=== PATIENT | female | born 1955 | race Asian ===

== ENCOUNTER 2021-06-27 18:11 | Inpatient (IN) ==
[2021-06-27 18:59] LABS: ABS Basophils 0.1 10^3/ul (0-0.2); ABS Eosinophils 0.1 10^3/ul (0-0.6); ABS Lymphocytes 3.4 10^3/ul (1.0-4.8); ABS Monocytes 0.9 10^3/ul (0-0.8); ABS Neutrophils 6.9 10^3/ul (1.5-7.7); Eosinophil % 1.3 %; Hematocrit 41 % (35-47); Hemoglobin 13.6 g/dL (12.0-16.0); Lymphocyte % 29.9 %; Mean Corpuscular HGB Conc 34 g/dL (31-36); Mean Corpuscular Hemoglobin 31 pg (27-31); Mean Corpuscular Volume 92 fL (80-97); Nucleated Red Blood Cells % 0.1; Platelet Count 250 10^3/uL (150-450); Red Blood Count 4.41 10^6 /uL (3.70-4.87); Red Cell Distribution Width 14 % (10-15); White Blood Count 11.5 10^3/uL (3.5-10.8)
[2021-06-27 19:09] LABS: Urine Appearance Cloudy; Urine Bilirubin Negative (Negative); Urine Blood Negative (Negative); Urine Color Yellow; Urine Glucose Negative (Negative); Urine Ketones Negative (Negative); Urine Nitrite Negative (Negative); Urine Protein Negative (Negative); Urine Specific Gravity 1.009 (1.002-1.030); Urine Urobilinogen Negative (Negative)
[2021-06-27 19:31] LABS: TSH Ultra Thyroid Stim Horm 1.97 mcIU/mL (0.34-5.60)
[2021-06-27 19:33] LABS: ALT 24 U/L (7-52); AST 24 U/L (13-39); Albumin 3.9 g/dL (3.2-5.2); Albumin/Globulin Ratio 0.9 (1-3); Alkaline Phosphatase 105 U/L (35-149); Anion Gap 9 mmol/L (2-11); Blood Urea Nitrogen 11 mg/dL (6-24); CO2 Carbon Dioxide 23 mmol/L (22-32); Calcium 10.1 mg/dL (8.6-10.3); Chloride 103 mmol/L (101-111); Globulin 4.5 g/dL (2-4); Glucose 98 mg/dL (70-100); Potassium 3.8 mmol/L (3.5-5.0); Sodium 135 mmol/L (135-145); Total Protein 8.4 g/dL (6.4-8.9)
[2021-06-27 19:37] LABS: Alcohol, S < 13 mg/dL (<13); Salicylate < 2.50 mg/dL (<30)
[2021-06-27 19:40] LABS: Acetaminophen < 15 mcg/mL
[2021-06-27 19:41] LABS: Urine Benzodiazepine Screen None Detected (None Detect); Urine Cannabinoids Screen None Detected (None Detect); Urine Opiates Screen None Detected (None Detect)
[2021-06-28] MEDS ORDERED: Al Hydrox/Mg Hydrox/Simet LIQ 30 ML UDC PO PRN (04:02)
[2021-06-28 04:39] LABS: Rapid COVID-19 Molecular Undetected (Undetected)
[2021-06-28] MEDS: Vitamin THERAPEUTIC TAB PO SCH (09:37)
[2021-06-28] MEDS ORDERED: Haloperidol 5 mg/ml SDV IV/IM 5 MG/ML AMP IM ONE (11:00)
[2021-06-28] MEDS ORDERED: diPHENhydraMINE IV 50 MG/ML 1 ml VIAL (BENADRYL) IM ONE (11:01)
[2021-06-28] MEDS ORDERED: Lorazepam PYXIS KEY PRN (11:03)
[2021-06-28] MEDS ORDERED: LORazepam 2 mg VIAL 1 ml IM ONE (11:03)
[2021-06-29 08:04] LABS: HDL Cholesterol 54.2 mg/dL
[2021-06-29] MEDS: Vitamin THERAPEUTIC TAB PO SCH (08:14)
[2021-06-30] MEDS: Vitamin THERAPEUTIC TAB PO SCH (08:36)
[2021-07-01] MEDS: Vitamin THERAPEUTIC TAB PO SCH (08:14)
[2021-07-02] MEDS: Vitamin THERAPEUTIC TAB PO SCH (07:42)
[2021-07-03] MEDS: Vitamin THERAPEUTIC TAB PO SCH (08:10)
[2021-07-04] MEDS: Vitamin THERAPEUTIC TAB PO SCH (08:07)
[2021-07-04] MEDS ORDERED: Paliperidone SUSTENNA 234 MG/1.5 ML IM ONE (12:55)
[2021-07-05] MEDS: Vitamin THERAPEUTIC TAB PO SCH (08:41)
[2021-07-06] MEDS: Vitamin THERAPEUTIC TAB PO SCH (07:46)
[2021-07-07] MEDS: Vitamin THERAPEUTIC TAB PO SCH (08:17)
[2021-07-08] MEDS: Vitamin THERAPEUTIC TAB PO SCH (07:57)
[2021-07-09] MEDS: Vitamin THERAPEUTIC TAB PO SCH (08:06)
[2021-07-09] MEDS ORDERED: Paliperidone SUSTENNA 156 MG/1 ML IM ONE (09:47)
[2021-07-10] MEDS: Vitamin THERAPEUTIC TAB PO SCH (07:31)
[2021-07-11] MEDS: Vitamin THERAPEUTIC TAB PO SCH (08:32)
[2021-07-12] MEDS: Vitamin THERAPEUTIC TAB PO SCH (08:09)
[2021-07-12 09:23] VITALS: BP 131/51
== END 2021-07-12 14:00 | disposition home or self-care (01) | DRG 885 ==
LOC: ED 18:11 → BSU 06-28 03:04
PROVIDERS: ADMIT Psychiatry & Neurology Psychiatry; ATTEND Student in an Organized Health Care Education/Training Program

== ENCOUNTER 2021-11-26 13:53 | Inpatient (IN) ==
[2021-11-27] MEDS ORDERED: Al Hydrox/Mg Hydrox/Simet LIQ 30 ML UDC PO PRN (04:36)
[2021-11-27] MEDS: Vitamin THERAPEUTIC TAB PO SCH (09:29)
[2021-11-28 08:20] LABS: HDL Cholesterol 61.4 mg/dL
[2021-11-28] MEDS ORDERED: OLANzapine 5 mg TAB*ODT PO PRN (09:53)
[2021-11-28] MEDS: Vitamin THERAPEUTIC TAB PO SCH (11:37)
[2021-11-29] MEDS: Vitamin THERAPEUTIC TAB PO SCH (07:48)
[2021-11-30] MEDS: Vitamin THERAPEUTIC TAB PO SCH (08:39)
[2021-12-01] MEDS: Vitamin THERAPEUTIC TAB PO SCH (08:45)
[2021-12-02] MEDS: Vitamin THERAPEUTIC TAB PO SCH (08:55)
[2021-12-03] MEDS: Vitamin THERAPEUTIC TAB PO SCH (09:53)
[2021-12-04] MEDS: Vitamin THERAPEUTIC TAB PO SCH (08:26)
[2021-12-05] MEDS: Vitamin THERAPEUTIC TAB PO SCH (07:21)
[2021-12-06] MEDS: Vitamin THERAPEUTIC TAB PO SCH (08:52)
[2021-12-06] MEDS ORDERED: Paliperidone SUSTENNA 234 MG/1.5 ML IM ONE (09:50)
[2021-12-07] MEDS: Vitamin THERAPEUTIC TAB PO SCH (08:57)
[2021-12-08] MEDS: Vitamin THERAPEUTIC TAB PO SCH (08:50)
[2021-12-09] MEDS: Vitamin THERAPEUTIC TAB PO SCH (08:57)
[2021-12-09] MEDS ORDERED: Paliperidone SUSTENNA 156 MG/1 ML IM ONE (09:51)
[2021-12-10] MEDS: Vitamin THERAPEUTIC TAB PO SCH (09:40)
[2021-12-11] MEDS: Vitamin THERAPEUTIC TAB PO SCH (08:21)
[2021-12-12] MEDS: Vitamin THERAPEUTIC TAB PO SCH (07:49)
[2021-12-13] MEDS: Vitamin THERAPEUTIC TAB PO SCH (08:36)
[2021-12-14] MEDS: Vitamin THERAPEUTIC TAB PO SCH (09:01)
[2021-12-15] MEDS: Vitamin THERAPEUTIC TAB PO SCH (07:59)
[2021-12-16] MEDS: Vitamin THERAPEUTIC TAB PO SCH (07:13)
[2021-12-17] MEDS: Vitamin THERAPEUTIC TAB PO SCH (08:28)
[2021-12-18] MEDS: Vitamin THERAPEUTIC TAB PO SCH (08:21)
[2021-12-19] MEDS: Vitamin THERAPEUTIC TAB PO SCH (07:49)
[2021-12-20] MEDS: Vitamin THERAPEUTIC TAB PO SCH (07:42)
[2021-12-21] MEDS: Vitamin THERAPEUTIC TAB PO SCH (08:15)
[2021-12-22] MEDS: Vitamin THERAPEUTIC TAB PO SCH (07:35)
[2021-12-23] MEDS: Vitamin THERAPEUTIC TAB PO SCH (07:51)
[2021-12-24] MEDS: Vitamin THERAPEUTIC TAB PO SCH (07:22)
[2021-12-24 07:52] VITALS: BP 103/82
== END 2021-12-24 12:00 | disposition home or self-care (01) | DRG 885 ==
LOC: ED 13:53 → BSU 21:00
PROVIDERS: ADMIT Psychiatry & Neurology Psychiatry; ATTEND Psychiatry & Neurology Psychiatry

== ENCOUNTER 2023-08-19 12:44 | Inpatient (IN) ==
[2023-08-19 14:34] LABS: ABS Basophils 0.1 10^3/uL (0.0-0.1); ABS Eosinophils 0.1 10^3/uL (0.0-0.5); ABS Lymphocytes 2.4 10^3/uL (1.0-4.8); ABS Monocytes 0.7 10^3/uL (0.0-0.9); ABS Nucleated RBC 0.01 10^3/ul; Hematocrit 38.4 % (35-45); Hemoglobin 12.8 g/dL (11.5-14.3); Mean Corpuscular Hemoglobin 31.3 pg (27-33); Mean Corpuscular Hgb Conc 33.4 g/dL (31-36); Mean Corpuscular Volume 93.7 fL (80-97); Mean Platelet Volume 8.9 fL (7.5-11.2); Nucleated Red Blood Cells % 0.1 %/100WBC (0.0-0.8); Platelet Count 279 10^3/uL (150-450); Red Cell Distribution Width 14.4 % (12-17); White Blood Count 9.2 10^3/uL (3.8-11.8)
[2023-08-19 14:50] LABS: Urine Appearance Clear; Urine Bilirubin Negative (Negative); Urine Blood Negative (Negative); Urine Color Yellow; Urine Glucose Negative (Negative); Urine Ketones Negative (Negative); Urine Nitrite Negative (Negative); Urine Protein Negative (Negative); Urine Specific Gravity 1.009 (1.002-1.030); Urine Urobilinogen Negative (Negative)
[2023-08-19 15:09] LABS: ALT 13 U/L (7-52); AST 17 U/L (13-39); Acetaminophen < 15 mcg/mL; Alcohol, S < 13 mg/dL (<13); Alkaline Phosphatase 122 U/L (35-149); Anion Gap 6 mmol/L (2-16); Blood Urea Nitrogen 17 mg/dL (6-24); CO2 Carbon Dioxide 28 mmol/L (22-32); Calcium 9.7 mg/dL (8.6-10.3); Chloride 101 mmol/L (101-111); Creatinine, Serum 0.92 mg/dL (0.51-0.95); Globulin 4.1 g/dL (2-4); Glucose 77 mg/dL (70-100); Potassium 3.6 mmol/L (3.5-5.0); Salicylate < 2.50 mg/dL (<30); Sodium 135 mmol/L (135-145); Total Bilirubin 0.3 mg/dL (0.2-1.0); Total Protein 8.1 g/dL (6.4-8.9); eGFR CKD-EPI 67.8 (>60)
[2023-08-19 15:19] LABS: Urine Bacteria 1+ (Absent); Urine Red Blood Cell Absent (Absent); Urine Squamous Epithelial Cell Present (Absent); Urine White Blood Cell Trace(0-5/hpf) (Absent)
[2023-08-19 15:22] LABS: TSH Ultra Thyroid Stim Horm 1.64 mcIU/mL (0.34-5.60)
[2023-08-19 15:23] LABS: Urine Benzodiazepine Screen None Detected (None Detect); Urine Cannabinoids Screen None Detected (None Detect); Urine Opiates Screen None Detected (None Detect)
[2023-08-19] MEDS ORDERED: Al Hydrox/Mg Hydrox/Simet LIQ 30 ML UDC PO PRN (15:52)
[2023-08-20] MEDS: Vitamin THERAPEUTIC TAB PO SCH (09:23)
[2023-08-20 09:59] LABS: HDL Cholesterol 56.7 mg/dL
[2023-08-20 12:15] LABS: ABS Basophils 0.1 10^3/uL (0.0-0.1); ABS Eosinophils 0.1 10^3/uL (0.0-0.5); ABS Lymphocytes 2.7 10^3/uL (1.0-4.8); ABS Monocytes 0.5 10^3/uL (0.0-0.9); ABS Neutrophils 3.5 10^3/uL (1.5-7.6); ABS Nucleated RBC 0.01 10^3/ul; Eosinophil % 1.9 %; Hematocrit 39.8 % (35-45); Hemoglobin 13.5 g/dL (11.5-14.3); Lymphocyte % 38.9 %; Mean Corpuscular Hemoglobin 32.1 pg (27-33); Mean Corpuscular Hgb Conc 33.9 g/dL (31-36); Mean Corpuscular Volume 94.6 fL (80-97); Mean Platelet Volume 8.9 fL (7.5-11.2); Nucleated Red Blood Cells % 0.1 %/100WBC (0.0-0.8); Platelet Count 225 10^3/uL (150-450); Red Cell Distribution Width 14.5 % (12-17); White Blood Count 6.8 10^3/uL (3.8-11.8)
[2023-08-20 12:23] LABS: Activated Partial Thrombo Time 30.8 seconds (26.0-38.0); INR 0.94 (0.83-1.13)
[2023-08-20] MEDS ORDERED: Iodixanol (CONTRAST) 320 MG/ML 100 ML SDV IV ONE (12:27)
[2023-08-20 12:37] LABS: Cholesterol 191 mg/dL; HDL Cholesterol 57.4 mg/dL; LDL Cholesterol 109 mg/dL; Triglycerides 125 mg/dL
[2023-08-20 16:08] LABS: ALT 12 U/L (7-52); Albumin 3.9 g/dL (3.2-5.2); Alkaline Phosphatase 125 U/L (35-149); Calcium 9.4 mg/dL (8.6-10.3); Creatinine, Serum 0.89 mg/dL (0.51-0.95); Globulin 4.1 g/dL (2-4); Glucose 104 mg/dL (70-100); Total Bilirubin 0.3 mg/dL (0.2-1.0); eGFR CKD-EPI 70.6 (>60)
[2023-08-20 16:09] LABS: Blood Urea Nitrogen 22 mg/dL (6-24); CO2 Carbon Dioxide 26 mmol/L (22-32); Chloride 106 mmol/L (101-111); Sodium 139 mmol/L (135-145)
[2023-08-20 16:11] LABS: Anion Gap 7 mmol/L (2-16)
[2023-08-20 17:10] LABS: Indirect Bilirubin 0.3 mg/dL (0.3-1.0); Potassium Redraw 4.3 mmol/L (3.5-5.0); Total Bilirubin 0.3 mg/dL (0.2-1.0)
[2023-08-21] MEDS: Vitamin THERAPEUTIC TAB PO SCH (13:57)
[2023-08-22] MEDS: Vitamin THERAPEUTIC TAB PO SCH (09:21)
[2023-08-23] MEDS: Vitamin THERAPEUTIC TAB PO SCH (08:44)
[2023-08-24] MEDS: Vitamin THERAPEUTIC TAB PO SCH (20:18)
[2023-08-25] MEDS: Vitamin THERAPEUTIC TAB PO SCH (09:18)
[2023-08-26] MEDS: Vitamin THERAPEUTIC TAB PO SCH (08:50)
[2023-08-27] MEDS: Vitamin THERAPEUTIC TAB PO SCH (10:11)
[2023-08-27] MEDS ORDERED: LORazepam 2 mg VIAL 1 ml ONE (10:54)
[2023-08-27] MEDS ORDERED: Haloperidol 5 mg/ml SDV IV/IM 5 MG/ML AMP ONE (10:54)
[2023-08-27] MEDS ORDERED: Haloperidol 5 mg/ml SDV IV/IM 5 MG/ML AMP IM ONE (11:00)
[2023-08-27] MEDS ORDERED: Lorazepam PYXIS KEY PRN (11:32)
[2023-08-27] MEDS ORDERED: LORazepam 2 mg VIAL 1 ml IM ONE (11:32)
[2023-08-28] MEDS: Vitamin THERAPEUTIC TAB PO SCH (11:36)
[2023-08-29] MEDS: Vitamin THERAPEUTIC TAB PO SCH (08:46)
[2023-08-29] MEDS ORDERED: Lorazepam PYXIS KEY PRN (10:14)
[2023-08-29] MEDS ORDERED: LORazepam 2 mg VIAL 1 ml IM ONE (10:14)
[2023-08-29] MEDS ORDERED: Haloperidol 5 mg/ml SDV IV/IM 5 MG/ML AMP IM ONE (10:14)
[2023-08-30] MEDS: Vitamin THERAPEUTIC TAB PO SCH (09:18)
[2023-08-31] MEDS: Vitamin THERAPEUTIC TAB PO SCH (08:48)
[2023-09-01] MEDS: Vitamin THERAPEUTIC TAB PO SCH (08:20)
[2023-09-02] MEDS: Vitamin THERAPEUTIC TAB PO SCH (09:36)
[2023-09-03] MEDS: Vitamin THERAPEUTIC TAB PO SCH (07:45)
[2023-09-04] MEDS: Vitamin THERAPEUTIC TAB PO SCH (10:00)
[2023-09-05] MEDS: Vitamin THERAPEUTIC TAB PO SCH (11:43)
[2023-09-06] MEDS: Vitamin THERAPEUTIC TAB PO SCH (07:58)
[2023-09-07] MEDS: Vitamin THERAPEUTIC TAB PO SCH (08:31)
[2023-09-08] MEDS: Vitamin THERAPEUTIC TAB PO SCH (08:02)
[2023-09-09] MEDS: Vitamin THERAPEUTIC TAB PO SCH (07:31)
[2023-09-10] MEDS: Vitamin THERAPEUTIC TAB PO SCH (08:25)
[2023-09-10 09:32] VITALS: BP 123/69
== END 2023-09-10 10:15 | DRG 885 ==
LOC: ED 12:44 → EDHOLD 15:52 → BSU 16:09
PROVIDERS: ADMIT Psychiatry & Neurology Psychiatry; ATTEND Psychiatry & Neurology Psychiatry